=== PATIENT | female | born 1970 | race Caucasian/White ===

== ENCOUNTER 2020-12-13 15:26 | Inpatient (IN) | payer SELFPAY ==
[~2020-12-13] VITALS: Ht 157.5 cm; Wt 157.9 kg
[2020-12-13] MEDS ORDERED: VANCOMYCIN PER PHARMACY MC ONE (16:15)
[2020-12-13] MEDS ORDERED: fentaNYL PF VIAL 100 MCG/2 ML VIAL IVP ONE (16:15)
--- NOTE | 2020-12-13 16:22 | PHYS DOC ---
General Adult EDM: Chief Complaint: LOWER EXT PAIN HPI: HPI: Patient is a 50 year old female who presents with went to an urgent care where she was placed on doxycycline and cephalexin on December 08. She had a open wound on the back of the right lower leg that is draining to the back of her leg. Patient states that the pain is worsening and the redness has spread. Patient states that she has been taking aspirin or Advil for her pain at home. She states that she is having a fever that is intermittent. This morning it was 99.6 right before she took some Advil. Patient states that the only known health problems she has is asthma. She states that she does not have a primary care physician. She does have bilateral lymphedema. Her right lower leg is 4+ with redness and cellulitis with purulent drainage to the back of the leg with wound. The left leg in comparison is 3+. Rating her burning throbbing pain a 8 out of 10. Review of Systems: Review of Systems: Constitutional: + Intermittent fever or chills. [] Eyes: Denies change in visual acuity. [] HENT: Denies nasal congestion or sore throat. [] Respiratory: Denies cough or shortness of breath. [] Cardiovascular: Denies chest pain or edema. [] GI: Denies abdominal pain, nausea, vomiting, bloody stools or diarrhea. [] : Denies dysuria. [] Musculoskeletal: Denies back pain or joint pain.+ Right lower leg [] Integument: Denies rash. + Right lower leg wound with cellulitis [] Neurologic: Denies headache, focal weakness or sensory changes. [] Endocrine: Denies polyuria or polydipsia. [] Lymphatic: Denies swollen glands. [] Psychiatric: Denies depression or anxiety. [] Heart Score: C/O Chest Pain: No Risk Factors: Risk Factors: DM, Current or recent (<one month) smoker, HTN, HLP, family history of CAD, obesity. Risk Scores: Score 0 - 3: 2.5% MACE over next 6 weeks - Discharge Home Score 4 - 6: 20.3% MACE over next 6 weeks - Admit for Clinical Observation Score 7 - 10: 72.7% MACE over next 6 weeks - Early Invasive Strategies Current Medications: Current Medications Medications (Trade) Dose Ordered Sig/Chalo Start Time Stop Time Status Last Admin Dose Admin Fentanyl Citrate (Fentanyl 2ml Vial) 25 mcg 1X ONCE 12/13/20 16:15 12/13/20 16:16 UNV Vancomycin HCl (Vanco Per Pharmacy) 1 each 1X ONCE 12/13/20 16:15 12/13/20 16:16 UNV Allergies: Allergies: Allergies Coded Allergies Type Severity Reaction Last Updated Verified No Known Drug Allergies 12/13/20 No Physical Exam: PE: Constitutional: Well developed, well nourished, no acute distress, non-toxic appearance. [] HENT: Normocephalic, atraumatic, bilateral external ears normal, oropharynx moist, no oral exudates, nose normal. [] Eyes: PERRLA, EOMI, conjunctiva normal, no discharge. [] Neck: Normal range of motion, no tenderness, supple, no stridor. [] Cardiovascular:Heart rate regular rhythm, no murmur [] Lungs & Thorax: Bilateral breath sounds clear to auscultation [] Abdomen: Bowel sounds normal, soft, no tenderness, no masses, no pulsatile masses. [] Skin: Warm, dry, right lower leg erythema, no rash. Right lower leg excised open draining wound with cellulitis [] Back: No tenderness, no CVA tenderness. [] Extremities: No tenderness, no cyanosis, no clubbing, ROM intact, right leg 4+ edema. Left leg 3+ [] Neurologic: Alert and oriented X 3, normal motor function, normal sensory function, no focal deficits noted. [] Psychologic: Affect normal, judgement normal, mood normal. [] EKG: EK read by Dr. Griffith as sinus tach and no STEMI [] Radiology/Procedures: Radiology/Procedures: [] Impression: [facility] [address] [place], [place] [id number] IMAGING REPORT Signed PATIENT: FERNANDA MARRERO ACCOUNT: [id number] : 1970 LOCATION: ER AGE: 50 SEX: F EXAM STATUS: REG ER ORD. PHYSICIAN: CORNELIUS PAVON APRN REASON: tachycardia, edema PROCEDURE: PORTABLE CHEST 1V Exam: Chest one view INDICATION: Tachycardia TECHNIQUE: Frontal view of the chest Comparisons: None FINDINGS: The cardiomediastinal silhouette and pulmonary vessels are within normal limits. The lung and pleural spaces are clear. IMPRESSION: No acute cardiopulmonary process. Electronically signed by: Osmany Lopez MD (12/13/2020 5:17 PM) [facility] DICTATED and SIGNED BY: OSMANY LOPEZ MD DATE: 12/13/20 [id number] 0 Course & Med Decision Making: Course & Med Decision Making Pertinent Labs and Imaging studies reviewed. (See chart for details) See HPI. Alert and oriented x4. Ambulatory with steady gait. Speaks in full clear sentences. Afebrile. Pedal strong present. Otherwise skin pink warm and dry. Cap refill less than 2 seconds. Patient denies headache, dizziness, shortness of breath, chest pain, abdominal pain, nausea, vomiting, diarrhea, cough, vision change, focal weakness, numbness or tingling. Patient is a SIRS alert. Vancomycin and a liter of fluids is started. Patient is admitted to hospitalist. [] Dragon Disclaimer: Dragkathya Disclaimer: This electronic medical record was generated, in whole or in part, using a voice recognition dictation system. NIHSS Stroke Scale NIH Stroke Scale: NIH Stroke Scale Response (Comments) Value Level of Consciousness: 0 Alert/Responsive 0 LOC Questions: 0 Answers both correctly 0 LOC Commands: 0 Performs both tasks 0 Best Gaze: 0 Normal 0 Visual: 0 No visual loss 0 Facial Palsy: 0 Normal, symmetrical 0 Motor - Left Arm 0 No drift 0 Motor - Right Arm 0 No drift 0 Motor - Left Leg 0 No drift 0 Motor: Right Leg 0 No drift 0 Limb Ataxia: 0 Absent 0 Sensory: 0 No loss 0 Best Language: 0 Normal 0 Dysathria: 0 Normal 0 Extinction and Inattention: 0 Normal 0 Total 0 Date and Time of Reassessment Date: Dec 13, 2020 Time: 17:14 Fluid Challenge Is the fluid challenge complet: No IBW Target Volume Used: No BMI > 30: Yes Vital Signs Vital Signs: Vital Signs Date Time Temp Pulse Resp B/P (MAP) Pulse Ox O2 Delivery O2 Flow Rate FiO2 12/13/20 15:57 97.8 114 20 196/82 (120) 97 Room Air 97.8 Temperature Source: Oral Respirations Respiratory Effort: Normal Respiratory Pattern: Normal Cardiovascular Pulse Rhythm: Regular Heart: Nml S1, S2, no murmurs Lung Sounds Breath Sounds: Clear Capillary Refil Capillary Refill: Rt Hand < 3 seconds Peripheral Pulse Pulse Location: Radial Pulse Strength: Normal (2+) Pulse Assessment Method: Monitor Integumentary Skin: Warm Skin Moisture: Dry Skin Turgor: Normal Skin Color: warm Fingernail Color: WNL Departure Departure Impression: Primary Impression: Wound cellulitis Additional Impression: SIRS (systemic inflammatory response syndrome) Disposition: 09 ADMITTED INPATIENT Admitting Physician: HIMS Condition: STABLE Referrals: NO PCP (PCP) CORNELIUS PAVON [employer] Dec 13, 2020 16:22
[2020-12-13] MEDS ORDERED: ACETAMINOPHEN 325 MG TABLET. PO ONE (16:30)
[2020-12-13 16:51] LABS: BASO # 0.1 x10^3/uL (0.0-0.2); BASO % 1 % (0-3); EOS # 0.1 x10^3/uL (0.0-0.7); EOS % 1 % (0-3); HEMATOCRIT 28.9 % (36.0-47.0); HEMOGLOBIN 9.5 g/dL (12.0-15.5); LYMPH # 1.6 x10^3/uL (1.0-4.8); LYMPH % 14 % (24-48); MEAN CORPUSCULAR HEMOGLOBIN 30 pg (25-35); MEAN CORPUSCULAR HGB CONC 33 g/dL (31-37); MEAN CORPUSCULAR VOLUME 92 fL (79-100); MONO # 1.1 x10^3/uL (0.0-1.1); MONO % 9 % (0-9); NEUT # 8.6 x10^3/uL (1.8-7.7); NEUT % 75 % (31-73); PLATELET COUNT 547 x10^3/uL (140-400); RED BLOOD COUNT 3.14 x10^6/uL (3.50-5.40); RED CELL DISTRIBUTION WIDTH 13.9 % (11.5-14.5); WHITE BLOOD COUNT 11.4 x10^3/uL (4.0-11.0)
[2020-12-13 16:59] LABS: CALCIUM 8.9 mg/dL (8.5-10.1); CREATININE 0.8 mg/dL (0.6-1.0); GFR 75.3; POTASSIUM 4.4 mmol/L (3.5-5.1)
[2020-12-13] MEDS ORDERED: VANCOMYCIN 2 GM in IV NORMAL SALINE 500ML BAG 500 ML IV ONE (17:00)
[2020-12-13 17:05] LABS: ALBUMIN 2.9 g/dL (3.4-5.0); ALBUMIN/GLOBULIN RATIO 0.6 (1.0-1.7); TOTAL BILIRUBIN 0.3 mg/dL (0.2-1.0); TOTAL PROTEIN 7.7 g/dL (6.4-8.2)
[2020-12-13] MEDS ORDERED: IV NORMAL SALINE 1000ML BAG 1,000 ML IV ONE (17:15)
--- NOTE | 2020-12-13 17:19 | RAD ---
Exam: Chest one view INDICATION: Tachycardia TECHNIQUE: Frontal view of the chest Comparisons: None FINDINGS: The cardiomediastinal silhouette and pulmonary vessels are within normal limits. The lung and pleural spaces are clear. IMPRESSION: No acute cardiopulmonary process. Electronically signed by: Osmany Garcia MD (12/13/2020 5:17 PM) JOSEF
[2020-12-13] MEDS ORDERED: ZOLPIDEM 5 MG TABLET. PO PRN (17:30)
[2020-12-13] MEDS ORDERED: ONDANSETRON PF 4 MG/2 ML VIAL. IV PRN (17:30)
--- NOTE | 2020-12-13 17:33 | PDOC1 ---
History and Physical Date of Admission Date of Admission DATE: 12/13/20 TIME: 17:29 Identification/Chief Complaint Chief Complaint Right leg pain Source Source: Patient History of Present Illness History of Present Illness Ms Jacobs is a 50 year old female with PMHx childhood asthma, morbid obesity who presents via private vehicle to ED c/o RLE swelling, pain, and redness. On 12/08/2020 she was evaluated for pain and redness, swelling of RLE and treated at 2 different urgent cares, started on doxycycline and cephalexin. Since then she has noted that some serous drainage has been saturating her clothing and bedsheets and the pain is progressively worse and the swelling is worse. She thinks the redness may have initially improved, but now includes the circumference of her leg. Pain is 7-8/10 and is burning in nature, radiates to her right groin. She has had subjective fevers and chills at home and has been taking NSAIDs with little relief (Ibuprofen and ASA). No recent sick contacts or travel. No other medical problems Since her 30s she has had progressively worse bilateral LE lymphedema since massive weight gain. She notes this is mainly due to her sedentary lifestyle. She does not follow with a primary care physician. EKG appears sinus tachycardia with left axis rate of [address] segment abnormalities or T wave inversions. Chest radiograph with no acute abnorm alities Labs with WBC 11.4 with shift, Hb 9.5, platelets 547, NA 140, K4.4, BUN 11, CR 0.8, glucose 108, lactic acid 1.4, troponin 0. Admitted for further treatment after failing outpatient cellulitis treatment. Past Medical History Cardiovascular: No pertinent hx Pulmonary: Asthma (Childhood) Past Surgical History Past Surgical History: No pertinent history Family History Family History: Hypertension, Obesity Social History Smoke: No ALCOHOL: none Drugs: None Current Problem List Problem List Problems Medical Problems: (1) SIRS (systemic inflammatory response syndrome) Status: Acute (2) Wound cellulitis Status: Acute Current Medications Current Medications Current Medications Vancomycin HCl (Vanco Per Pharmacy) 1 each 1X ONCE MC ; Start 12/13/20 at 16:15; Stop 12/13/20 at 16:16; Status UNV Fentanyl Citrate (Fentanyl 2ml Vial) 25 mcg 1X ONCE IVP Last administered on 12/13/20at 17:18; Start 12/13/20 at 16:15; Stop 12/13/20 at 16:16; Status DC Acetaminophen (Tylenol) 650 mg 1X ONCE PO Last administered on 12/13/20at 17:17; Start 12/13/20 at 16:30; Stop 12/13/20 at 16:31; Status DC Vancomycin HCl 2 gm/Sodium Chloride 500 ml @ 250 mls/hr 1X ONCE IV ; Start 12/13/20 at 17:00; Stop 12/13/20 at 18:59 Sodium Chloride 1,000 ml @ 1,000 mls/hr 1X ONCE IV Last administered on 12/13/20at 17:17; Start 12/13/20 at 17:15; Stop 12/13/20 at 18:14 Allergies Allergies: Coded Allergies: No Known Drug Allergies (Unverified , 12/13/20) ROS General: YES: Fatigue, Malaise; No: Chills, Night Sweats, Appetite, Other PSYCHOLOGICAL ROS: No: Anxiety, Behavioral Disorder, Concentration difficultie, Decreased libido, Depression, Disorientation, Hallucinations, Hostility, Irritablity, Memory difficulties, Mood Swings, Obsessive thoughts, Physical abuse, Sexual abuse, Sleep disturbances, Suicidal ideation, Other Eyes: No Blurry vision, No Decreased vision, No Double vision, No Dry eyes, No Excessive tearing, No Eye Pain, No Itchy Eyes, No Loss of vision, No Photophobia, No Scotomata, No Uses contacts, No Uses glasses, No Other HEENT: No: Heacaches, Visual Changes, Hearing change, Nasal congestion, Nasal discharge, Oral lesions, Sinus pain, Sore Throat, Epistaxis, Sneezing, Snoring, Tinnitus, Vertigo, Vocal changes, Other ALLERGY AND IMMUNOLOGY: No: Hives, Insect Bite Sensitivity, Itchy/Watery Eyes, Nasal Congestion, Post Nasal Drip, Seasonal Allergies, Other Hematological and Lymphatic: No: Bleeding Problems, Blood Clots, Blood Trans fusions, Brusing, Night Sweats, Pallor, Swollen Lymph Nodes, Other ENDOCRINE: No: Breast Changes, Galactorrhea, Hair Pattern Changes, Hot Flashes, Malaise/lethargy, Mood Swings, Palpitations, Polydipsia/polyuria, Skin Changes, Temperature Intolerance, Unexpected Weight Changes, Other Breast: No New/Changing Breast Lumps, No Nipple changes, No Nipple discharge, No Other Respiratory: No: Cough, Hemoptysis, Orthopnea, Pleuritic Pain, Shortness of breath, SOB with excertion, Sputum Changes, Stridor, Tachypnea, Wheezing, Other Cardiovascular: No Chest Pain, No Palpitations, No Orthopnea, No Paroxysmal Noc. Dyspnea, No Edema, No Lt Headedness, No Other Gastrointestinal: No Nausea, No Vomiting, No Abdominal Pain, No Diarrhea, No Constipation, No Melena, No Hematochezia, No Other Genitourinary: No Dysuria, No Frequency, No Incontinence, No Hematuria, No Retention, No Discharge, No Urgency, No Pain, No Flank Pain, No Other, No , No , No , No , No , No , No Musculoskeletal: Yes Gait Disturbance, Yes Muscle Pain; No Joint Pain, No Joint Stiffness, No Joint Swelling, No Muscular Weakness, No Pain In:, No Swelling In:, No Other Neurological: No Behavorial Changes, No Bowel/Bladder ControlChng, No Confusion, No Dizziness, No Gait Disturbance, No Headaches, No Impaired Coord/balance, No Memory Loss, No Numbness/Tingling, No Seizures, No Speech Problems, No Tremors, No Visual Changes, No Weakness, No Other Skin: Yes Rash, Yes Skin Lesion Changes; No Dry Skin, No Eczema, No Hair Changes, No Lumps, No Mole Changes, No Mottling, No Nail Changes, No Pruritus, No Other, No Acne Physical Exam General: Alert, Oriented X3, Cooperative, mild distress HEENT: Atraumatic, PERRLA, EOMI, Mucous membr. moist/pink, Other (Glasses in place) Lungs: Clear to auscultation, Normal air movement Heart: S1S2, RRR, no thrills, no rubs, no gallops, no murmurs Abdomen: Normal bowel sounds, Soft, No tenderness, No hepatosplenomegaly, No masses Rectal Exam: not examined Extremities: No clubbing, No cyanosis, Normal pulses, Other (RLE red, hot, swollen x2 LLE size, tender, red 3/4 up leg, circumferentially. LLE swollen as well) Skin: Other (RLE erythema with some bullae) Neuro: Normal gait, Normal speech, Strength at 5/5 X4 ext, Normal tone, Sensation intact, Cranial nerves 3-12 NL, Reflexes 2+ Psych/Mental Status: Mental status NL, Mood NL Vitals Vitals Vital Signs Date Time Temp Pulse Resp B/P (MAP) Pulse Ox O2 Delivery O2 Flow Rate FiO2 12/13/20 17:18 Room Air 12/13/20 15:57 97.8 114 20 196/82 (120) 97 97.8 Labs Labs Laboratory Tests Test 12/13/20 16:30 White Blood Count 11.4 x10^3/uL (4.0-11.0) Red Blood Count 3.14 x10^6/uL (3.50-5.40) Hemoglobin 9.5 g/dL (12.0-15.5) Hematocrit 28.9 % (36.0-47.0) Mean Corpuscular Volume 92 fL (79-100) Mean Corpuscular Hemoglobin 30 pg (25-35) Mean Corpuscular Hemoglobin Concent 33 g/dL (31-37) Red Cell Distribution Width 13.9 % (11.5-14.5) Platelet Count 547 x10^3/uL (140-400) Neutrophils (%) (Auto) 75 % (31-73) Lymphocytes (%) (Auto) 14 % (24-48) Monocytes (%) (Auto) 9 % (0-9) Eosinophils (%) (Auto) 1 % (0-3) Basophils (%) (Auto) 1 % (0-3) Neutrophils # (Auto) 8.6 x10^3/uL (1.8-7.7) Lymphocytes # (Auto) 1.6 x10^3/uL (1.0-4.8) Monocytes # (Auto) 1.1 x10^3/uL (0.0-1.1) Eosinophils # (Auto) 0.1 x10^3/uL (0.0-0.7) Basophils # (Auto) 0.1 x10^3/uL (0.0-0.2) Sodium Level 140 mmol/L (136-145) Potassium Level 4.4 mmol/L (3.5-5.1) Chloride Level 101 mmol/L (98-107) Carbon Dioxide Level 27 mmol/L (21-32) Anion Gap 12 (6-14) Blood Urea Nitrogen 11 mg/dL (7-20) Creatinine 0.8 mg/dL (0.6-1.0) Estimated GFR (Cockcroft-Gault) 75.3 BUN/Creatinine Ratio 14 (6-20) Glucose Level 108 mg/dL (70-99) Lactic Acid Level 1.4 mmol/L (0.4-2.0) Calcium Level 8.9 mg/dL (8.5-10.1) Troponin I Quantitative < 0.017 ng/mL (0.000-0.055) Laboratory Tests Test 12/13/20 16:30 White Blood Count 11.4 x10^3/uL (4.0-11.0) Red Blood Count 3.14 x10^6/uL (3.50-5.40) Hemoglobin 9.5 g/dL (12.0-15.5) Hematocrit 28.9 % (36.0-47.0) Mean Corpuscular Volume 92 fL (79-100) Mean Corpuscular Hemoglobin 30 pg (25-35) Mean Corpuscular Hemoglobin Concent 33 g/dL (31-37) Red Cell Distribution Width 13.9 % (11.5-14.5) Platelet Count 547 x10^3/uL (140-400) Neutrophils (%) (Auto) 75 % (31-73) Lymphocytes (%) (Auto) 14 % (24-48) Monocytes (%) (Auto) 9 % (0-9) Eosinophils (%) (Auto) 1 % (0-3) Basophils (%) (Auto) 1 % (0-3) Neutrophils # (Auto) 8.6 x10^3/uL (1.8-7.7) Lymphocytes # (Auto) 1.6 x10^3/uL (1.0-4.8) Monocytes # (Auto) 1.1 x10^3/uL (0.0-1.1) Eosinophils # (Auto) 0.1 x10^3/uL (0.0-0.7) Basophils # (Auto) 0.1 x10^3/uL (0.0-0.2) Sodium Level 140 mmol/L (136-145) Potassium Level 4.4 mmol/L (3.5-5.1) Chloride Level 101 mmol/L (98-107) Carbon Dioxide Level 27 mmol/L (21-32) Anion Gap 12 (6-14) Blood Urea Nitrogen 11 mg/dL (7-20) Creatinine 0.8 mg/dL (0.6-1.0) Estimated GFR (Cockcroft-Gault) 75.3 BUN/Creatinine Ratio 14 (6-20) Glucose Level 108 mg/dL (70-99) Lactic Acid Level 1.4 mmol/L (0.4-2.0) Calcium Level 8.9 mg/dL (8.5-10.1) Troponin I Quantitative < 0.017 ng/mL (0.000-0.055) Images Images Chest radiograph: The cardiomediastinal silhouette and pulmonary vessels are within normal limits. The lung and pleural spaces are clear. IMPRESSION: No acute cardiopulmonary process. VTE Prophylaxis Ordered VTE Prophylaxis Devices: No VTE Pharmacological Prophylaxi: Yes Assessment/Plan Assessment/Plan A/P: RLE cellulitis - with failure of outpatient antibiotics, admitted for further treatment. Elevate leg, compressive wrap, empiric vancomycin for staph coverage and rocephin for strep coverage, hopefully can transition back to PO in the next 48 hours. Needs lymphedema and weight loss outpatient. Sepsis - with tachycardia, leukocytosis and clearly with cellulitis treating with IV antibiotics. ED had consulted ID prior to call for admission. RLE swelling - will obtain venous doppler to r/o concomitant DVT. likely cellulitis and lymphedema related, both likely related to weight Morbid obesity - patient working on weight loss. Previously notes in her teens and 20s was at her goal BMI, but since her late 30s has gained significant weight and has started a graded exercise program and is trying to work with a supervisor force adjustment. Counseled on lifestyle modification Hyperglycemia - will check a1c, TSH Elevated blood pressure without a diagnosis of hypertension - will need 2 weeks of ambulatory monitoring of BP prior to having good recommendations for BP meds outpatient, though a combination JESIKA/ARB + HCTZ would likely be indicated in the near future Anemia - no clear blood loss. Likely of chronic disease. Will check iron studies. She does need screening colonoscopy given age > 45 H/o asthma - no shortness of breath. FEN - General diet PPX - lovenox FULL CODE Dispo - inpatient for outpatient cellulitis treatment failure. Justifications for Admission Other Justification JOSE JUAN WEIR MD Dec 13, 2020 17:33
[2020-12-13] MEDS ORDERED: fentaNYL PF VIAL 100 MCG/2 ML VIAL IV PRN (17:45)
[2020-12-13] MEDS ORDERED: ACETAMINOPHEN 325 MG TABLET. PO PRN (17:45)
[2020-12-13] MEDS ORDERED: cefTRIAXone IV Push 1 GM VIAL. IVP ONE (18:00)
--- NOTE | 2020-12-13 18:11 | EKG ---
[facility] [address] [place] [address] Test Date: 2020-12-13 Test Time: 16:30:54 Pat Name: FERNANDA MARRERO Department: Room: Gender: F Travel Rn Or: : 1970 Requested By: CORNELIUS PAVON Order Number: [id number] Reading MD: Measurements Intervals [place] Rate: 105 P: 54 [place]: 148 QRS: -24 QRSD: 92 T: 55 QT: 322 QTc: 429 Interpretive Statements SINUS TACHYCARDIA LEFTWARD AXIS OTHERWISE NORMAL ECG RI6.02 No previous ECG available for comparison
[2020-12-13] MEDS: VANCOMYCIN PER PHARMACY MC PRN (19:50)
[2020-12-13 19:51] LABS: BILIRUBIN,URINE NEGATIVE (NEG); CLARITY,URINE CLEAR; COLOR,URINE YELLOW; NITRITE,URINE NEGATIVE (NEG); PH,URINE 7.5 (<5.0-8.0); PROTEIN,URINE NEGATIVE (NEG-TRACE); UROBILINOGEN,URINE 0.2 mg/dL (0.2 mg/dL)
--- NOTE | 2020-12-13 19:53 | NUR ---
Pharmacy Vancomycin Dosing Note S:Consulted to monitor and dose vancomycin started 12/13/20. O:FERNANDA MARRERO is a 50 year old F with Cellulitis . Height: 5 feet, 2 inches Weight: 156.2 kg [place] Body Weight: 50.10 Adjusted Body Weight: 92.54 Dosing Weight: Actual Other Antibiotics: LABS: Last BUN: Last Creatinine: 0.8 Creatinine Clearance: 125 mL/min Last WBC: 11.4 Last Procalcitonin: Tmax (past 24 hours): 97.8 Microbiology: I/O: Drug Levels: Last level: on at Last dose given 12/13/20 at 1947 Vancomycin Dosing: Loading Dose: 2000 mg x1 Dosing Weight: Actual Target Trough: 10-20 A: Based on: WEIGHT AND RENAL FUNCTION, VANCOMYCIN 2GM IV BOLUS GIVEN, P: 1. Begin Vancomycin 1500 mg IV q8h 2. Follow up Trough level on 12/14/20 at 1930 3. Pharmacy will continue to monitor, follow and adjust therapy as needed. TIM FARR RPH, 12/13/201952
[2020-12-13 20:00] VITALS: BP 194/78
[2020-12-13] MEDS ORDERED: ENOXAPARIN 40 MG/0.4 ML SYRINGE. SQ SCH (20:00)
[2020-12-13 20:02] LABS: BACTERIA,URINE 0 /HPF (0-FEW)
[2020-12-13] MEDS ORDERED: MULT-650 PO (22:38)
[2020-12-13] MEDS ORDERED: MV,C400T PO (22:38)
[2020-12-13] MEDS ORDERED: ACET325T9 PO (22:38)
[2020-12-13 23:59] VITALS: BP 142/70
[2020-12-14] VITALS (7 sets, daily range): BP systolic 140–188; BP diastolic 59–81
--- NOTE | 2020-12-14 02:49 | RAD ---
US DPLX VENOUS EXTREMITY LOWER RT History: Reason: Cellulitis, concern for DVT with significant swelling and pain / Spl. Instructions: / History: Comparison: None. Discussion: Multiple longitudinal and transverse high resolution real-time images of the venous system of right l ower extremity were obtained with color and Doppler sampling. Patent right common femoral, deep femor al, superficial femoral, and popliteal veins. Calf veins not well seen due to patient body habitus an d edema. No definite thrombosis. Right lower extremity subcutaneous edema. Impression: 1. No evidence of deep vein thrombosis. 2. Right lower extremity subcutaneous edema. Electronically signed by: Demetrius Dixon DO (12/14/2020 2:47 AM) [facility]
[2020-12-14] MEDS: VANCOMYCIN 1.5 GM in IV NORMAL SALINE 500ML BAG 500 ML IV SCH ×3 (04:04→21:03)
[2020-12-14] MEDS: ACETAMINOPHEN 325 MG TABLET. PO PRN ×3 (04:07→23:51)
[2020-12-14 07:57] LABS: BASO % 1 % (0-3); EOS % 1 % (0-3); HEMOGLOBIN 8.4 g/dL (12.0-15.5); LYMPH # 1.2 x10^3/uL (1.0-4.8); LYMPH % 13 % (24-48); MEAN CORPUSCULAR HEMOGLOBIN 31 pg (25-35); MEAN CORPUSCULAR HGB CONC 33 g/dL (31-37); MEAN CORPUSCULAR VOLUME 92 fL (79-100); MONO # 0.9 x10^3/uL (0.0-1.1); MONO % 10 % (0-9); NEUT # 6.8 x10^3/uL (1.8-7.7); NEUT % 76 % (31-73); PLATELET COUNT 465 x10^3/uL (140-400); RED BLOOD COUNT 2.71 x10^6/uL (3.50-5.40); RED CELL DISTRIBUTION WIDTH 14.1 % (11.5-14.5)
[2020-12-14 08:22] LABS: CALCIUM 8.7 mg/dL (8.5-10.1); CREATININE 0.8 mg/dL (0.6-1.0); GFR 75.3; POTASSIUM 4.3 mmol/L (3.5-5.1)
[2020-12-14] MEDS: LABETALOL 20 MG/4 ML DISP.SYRIN. IVP PRN ×2 (09:27→15:34)
--- NOTE | 2020-12-14 11:47 | NUR ---
SW following. Discussed with RN, pt from home with mother, room air, cardiac diet. Lymphedema OT ordered. Wound care and ID consulted. Med Assist following for self pay status. SW will continue to follow.
--- NOTE | 2020-12-14 13:28 | PDOC ---
[employer] PROGRESS NOTE Date of Service DOS: DATE: 12/14/20 TIME: 13:27 Chief Complaint Chief Complaint RLE cellulitis - with failure of outpatient antibiotics, admitted for further treatment. Elevate leg, compressive wrap, empiric vancomycin for staph coverage and rocephin for strep coverage, hopefully can transition back to PO in the next 48 hours. Needs lymphedema and weight loss outpatient. Sepsis - with tachycardia, leukocytosis and clearly with cellulitis treating with IV antibiotics. ED had consulted ID prior to call for admission. RLE swelling - will obtain venous doppler to r/o concomitant DVT. likely cellulitis and lymphedema related, both likely related to weight Morbid obesity - patient working on weight loss. 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 Counseled on lifestyle modification Hyperglycemia - will check a1c, TSH Elevated blood pressure without a diagnosis of hypertension - will need 2 weeks of ambulatory monitoring of BP prior to having good recommendations for BP meds outpatient, though a combination JESIKA/ARB + HCTZ would likely be indicated in the near future Anemia - no clear blood loss. Likely of chronic disease. Will check iron stud ies. She does need screening colonoscopy given age > 45 H/o asthma - no shortness of breath. Vitals/I&O Vitals/I&O: Vital Signs Date Time Temp Pulse Resp B/P (MAP) Pulse Ox O2 Delivery O2 Flow Rate FiO2 12/14/20 10:17 140/73 (95) 12/14/20 09:27 93 12/14/20 07:48 99.0 18 97 Room Air 99.0 I & O 12/13/20 12/13/20 12/14/20 15:00 23:00 07:00 Intake Total 500 ml Balance 500 ml Physical Exam General: Alert, Oriented X3, Cooperative, mild distress Heart: Regular rate Lungs: Clear Abdomen: Normal bowel sounds, Soft, No tenderness, No hepatosplenomegaly, No m asses Extremities: No clubbing, No cyanosis, Normal pulses, Other (RLE red, hot, swollen x2 LLE size, tender, red 3/4 up leg, circumferentially. LLE swollen as well) Skin: Other (RLE erythema with some bullae) Labs Labs: Laboratory Tests Test 12/13/20 16:30 6/7/21 19:43 12/14/20 07:20 White Blood Count 11.4 x10^3/uL (4.0-11.0) 9.0 x10^3/uL (4.0-11.0) Red Blood Count 3.14 x10^6/uL (3.50-5.40) 2.71 x10^6/uL (3.50-5.40) Hemoglobin 9.5 g/dL (12.0-15.5) 8.4 g/dL (12.0-15.5) Hematocrit 28.9 % (36.0-47.0) 25.0 % (36.0-47.0) Mean Corpuscular Volume 92 fL (79-100) 92 fL (79-100) Mean Corpuscular Hemoglobin 30 pg (25-35) 31 pg (25-35) Mean Corpuscular Hemoglobin Concent 33 g/dL (31-37) 33 g/dL (31-37) Red Cell Distribution Width 13.9 % (11.5-14.5) 14.1 % (11.5-14.5) Platelet Count 547 x10^3/uL (140-400) 465 x10^3/uL (140-400) Neutrophils (%) (Auto) 75 % (31-73) 76 % (31-73) Lymphocytes (%) (Auto) 14 % (24-48) 13 % (24-48) Monocytes (%) (Auto) 9 % (0-9) 10 % (0-9) Eosinophils (%) (Auto) 1 % (0-3) 1 % (0-3) Basophils (%) (Auto) 1 % (0-3) 1 % (0-3) Neutrophils # (Auto) 8.6 x10^3/uL (1.8-7.7) 6.8 x10^3/uL (1.8-7.7) Lymphocytes # (Auto) 1.6 x10^3/uL (1.0-4.8) 1.2 x10^3/uL (1.0-4.8) Monocytes # (Auto) 1.1 x10^3/uL (0.0-1.1) 0.9 x10^3/uL (0.0-1.1) Eosinophils # (Auto) 0.1 x10^3/uL (0.0-0.7) 0.0 x10^3/uL (0.0-0.7) Basophils # (Auto) 0.1 x10^3/uL (0.0-0.2) 0.0 x10^3/uL (0.0-0.2) Erythrocyte Sedimentation Rate 130 (0-25) Sodium Level 140 mmol/L (136-145) 143 mmol/L (136-145) Potassium Level 4.4 mmol/L (3.5-5.1) 4.3 mmol/L (3.5-5.1) Chloride Level 101 mmol/L (98-107) 106 mmol/L (98-107) Carbon Dioxide Level 27 mmol/L (21-32) 28 mmol/L (21-32) Anion Gap 12 (6-14) 9 (6-14) Blood Urea Nitrogen 11 mg/dL (7-20) 7 mg/dL (7-20) Creatinine 0.8 mg/dL (0.6-1.0) 0.8 mg/dL (0.6-1.0) Estimated GFR (Cockcroft-Gault) 75.3 75.3 BUN/Creatinine Ratio 14 (6-20) Glucose Level 108 mg/dL (70-99) 98 mg/dL (70-99) Lactic Acid Level 1.4 mmol/L (0.4-2.0) Calcium Level 8.9 mg/dL (8.5-10.1) 8.7 mg/dL (8.5-10.1) Total Bilirubin 0.3 mg/dL (0.2-1.0) Aspartate Amino Transf (AST/SGOT) 22 U/L (15-37) Alanine Aminotransferase (ALT/SGPT) 24 U/L (14-59) Alkaline Phosphatase 132 U/L (46-116) Troponin I Quantitative < 0.017 ng/mL (0.000-0.055) C-Reactive Protein, Quantitative 301.0 mg/L (0-3.3) CP-Cst-D-Type Natriuretic Peptide 344 pg/mL (0-124) Total Protein 7.7 g/dL (6.4-8.2) Albumin 2.9 g/dL (3.4-5.0) Albumin/Globulin Ratio 0.6 (1.0-1.7) Thyroid Stimulating Hormone (TSH) 3.064 uIU/mL (0.358-3.74) Urine Collection Type Unknown Urine Color Yellow Urine Clarity Clear Urine pH 7.5 (<5.0-8.0) Urine Specific [place] 1.010 (1.000-1.030) Urine Protein Negative mg/dL (NEG-TRACE) Urine Glucose (UA) Negative mg/dL (NEG) Urine Ketones (Stick) Negative mg/dL (NEG) Urine Blood Trace (NEG) Urine Nitrite Negative (NEG) Urine Bilirubin Negative (NEG) Urine Urobilinogen Dipstick 0.2 mg/dL (0.2 mg/dL) Urine Leukocyte Esterase Negative (NEG) Urine RBC 11-20 /HPF (0-2) Urine WBC 1-4 /HPF (0-4) Urine Squamous Epithelial Cells Many /LPF Urine Bacteria 0 /HPF (0-FEW) Review of Systems Review of Systems: right leg swelling and pain Assessment and Plan Assessmemt and Plan Problems Medical Problems: (1) SIRS (systemic inflammatory response syndrome) Status: Acute (2) Wound cellulitis Status: Acute Comment Review of Relevant I have reviewed the following items riya (where applicable) has been applied. Medications: Current Medications Medications (Trade) Dose Ordered Sig/Chalo Route PRN Reason Start Time Stop Time Status Last Admin Dose Admin Fentanyl Citrate (Fentanyl 2ml Vial) 25 mcg 1X ONCE IVP 12/13/20 16:15 12/13/20 16:16 DC 12/13/20 17:18 Acetaminophen (Tylenol) 650 mg 1X ONCE PO 12/13/20 16:30 12/13/20 16:31 DC 12/13/20 17:17 Vancomycin HCl 2 gm/Sodium Chloride 500 ml @ 250 mls/hr 1X ONCE IV 12/13/20 17:00 12/13/20 18:59 DC 12/13/20 19:36 Sodium Chloride 1,000 ml @ 1,000 mls/hr 1X ONCE IV 12/13/20 17:15 12/13/20 18:14 DC 12/13/20 17:17 Ceftriaxone Sodium (Rocephin) 1 gm 1X ONCE IVP 12/13/20 18:00 12/13/20 18:01 DC 12/13/20 19:36 Acetaminophen (Tylenol) 650 mg PRN Q6HRS PRN PO TEMP OVER 100.4F OR MILD PAIN 12/13/20 17:30 12/14/20 04:07 Enoxaparin Sodium (Lovenox 40mg Syringe) 40 mg Q24H SQ 12/13/20 20:00 12/14/20 12:29 DC 12/13/20 22:26 Vancomycin HCl (Vanco Per Pharmacy) 1 each PRN DAILY PRN MC SEE COMMENTS 12/13/20 20:00 12/13/20 19:50 Vancomycin HCl 1.5 gm/Sodium Chloride 500 ml @ 250 mls/hr Q8H IV 12/14/20 04:00 12/14/20 11:49 Labetalol HCl (Normodyne Iv Push) 20 mg PRN Q2HR PRN IVP HYPERTENSION 12/13/20 22:00 12/14/20 09:27 Justifications for Admission Other Justification FIDEL THOMAS MD Dec 14, 2020 13:27
--- NOTE | 2020-12-14 17:36 | NUR ---
Wound Care Wound Type/Assessment: Consult to eval and treat closed blister to R posterior calf, picture and measurements from admission present. Upon assessment, blister noted to have ruptured and moderate amount of creamy serosanguinous observed. Wound base red, non-granular, with slough. Margins are bright red and entire lower leg is red, lymphatic edema. No other open wounds noted on head to toe assessment. Treatment Recommendations/Plan: R posterior leg: Cleanse and cover with aquacel AG and foam dressing. Change every other day and as needed to manage drainage. OT consult to treat lymphedema Education provided: Turn every 2 hours to prevent pressure related skin damage. Offloading surface/device: Pt is able to make small adjustments to position independently. Recommended Referrals/Tests: OT-lymphedema Discharge Recommendations for dressings: As above
[2020-12-14 20:41] LABS: VANC TR 18.8 mcg/mL (10.0-20.0)
[2020-12-14] MEDS: VANCOMYCIN PER PHARMACY MC PRN (20:44)
--- NOTE | 2020-12-14 20:47 | NUR ---
Pharmacy Vancomycin Dosing Note S:Consulted to monitor and dose vancomycin started 12/13/20. O:FERNANDA MARRERO is a 50 year old F with Cellulitis . Height: 5 feet, 2 inches Weight: 157.3 kg [place] Body Weight: 50.10 Adjusted Body Weight: 92.98 Dosing Weight: Actual Other Antibiotics: LABS: Last BUN: Last Creatinine: 0.8 Creatinine Clearance: 125 mL/min Last WBC: 11.4 Last Procalcitonin: Tmax (past 24 hours): 97.8 Microbiology: I/O: Drug Levels: Last Trough level: 18.8 on 12/14/20 at 1930 Last dose given 12/13/20 at 1947 Vancomycin Dosing: Loading Dose: 2000 mg x1 Dosing Weight: Actual Target Trough: 10-20 A: Based on: LEVEL P: 1. Continue Vancomycin 1500 mg IV q8h 2. Follow up Trough level on 12/15/20 at 1930 3. Pharmacy will continue to monitor, follow and adjust therapy as needed. TIM FARR RPH, 12/14/206
[2020-12-14 23:08] LABS: HEMOGLOBIN A1C 5.6 % (4.8-5.6)
[2020-12-15 03:00] VITALS: BP 156/64
[2020-12-15] MEDS: VANCOMYCIN 1.5 GM in IV NORMAL SALINE 500ML BAG 500 ML IV SCH ×2 (04:00→11:54)
--- NOTE | 2020-12-15 05:30 | NUR ---
Patient's vancomycin started at this time, as meditech down, and schedule was off.
[2020-12-15 07:00] VITALS: BP 138/94
--- NOTE | 2020-12-15 10:02 | NUR ---
SW following. Discussed with RN, pt from home with mother, room air, cardiac diet. Pt wanting to discharge home today. Med Assist following for self pay status. SW will continue to follow.
[2020-12-15 11:00] VITALS: BP 163/73
[2020-12-15] MEDS: ACETAMINOPHEN 325 MG TABLET. PO PRN (11:55)
[2020-12-15] MEDS ORDERED: CLIN300C9 PO (12:26)
[2020-12-15] MEDS: VANCOMYCIN PER PHARMACY MC PRN (14:00)
[2020-12-15 15:00] VITALS: BP 180/83
[2020-12-15] MEDS: LABETALOL 20 MG/4 ML DISP.SYRIN. IVP PRN (15:43)
[2020-12-15 16:15] VITALS: BP 163/75
--- NOTE | 2020-12-15 16:21 | NUR ---
This RN notified Dr. Montes of pt's current BP-163/75, after labetolol administration. Refer to EMAR for details. Per Dr. Montes, pt okay to discharge with current BP reading.
--- NOTE | 2020-12-15 16:45 | NUR ---
Pt left unit at approx 1645 by wheelchair via private vehicle, accompanied by mother. Pt's IV removed without complication, VSS. Discharge paperwork discussed with pt and mother, including medications, follow-up, and wound care. Additional questions addressed.
--- NOTE | 2020-12-15 16:55 | PDOC3 ---
Discharge Summary Visit Information Date of Admission: Dec 13, 2020 Date of Discharge: Dec 15, 2020 Final Diagnosis RLE cellulitis - failure of outpatient antibiotics, doxy admitted for further treatment. marked LE lymphedema Sepsis - with tachycardia, leukocytosis and clearly with cellulitis treating with IV antibiotics. ED had consulted ID prior to call for admission. RLE swelling - will obtain venous doppler to r/o concomitant DVT. likely cellulitis and lymphedema related, both likely related to weight Morbid obesity - BMI 64, patient working on weight loss. Pr Hyperglycemia - will check a1c, TSH hypertension Anemia - of chronic disease. H/o asthma - no shortness of breath. Problems Medical Problems: (1) SIRS (systemic inflammatory response syndrome) Status: Acute (2) Wound cellulitis Status: Acute Brief Hospital Course Allergies Allergies Coded Allergies Type Severity Reaction Last Updated Verified No Known Drug Allergies 12/13/20 No Vital Signs Vital Signs Date Time Temp Pulse Resp B/P (MAP) Pulse Ox O2 Delivery O2 Flow Rate FiO2 12/15/20 16:15 163/75 (104) 12/15/20 15:43 91 12/15/20 15:00 98.6 18 96 Room Air 98.6 Lab Results Laboratory Tests Test 12/13/20 19:43 12/14/20 07:20 12/14/20 19:42 Urine Collection Type Unknown Urine Color Yellow Urine Clarity Clear Urine pH 7.5 (<5.0-8.0) Urine Specific [place] 1.010 (1.000-1.030) Urine Protein Negative mg/dL (NEG-TRACE) Urine Glucose (UA) Negative mg/dL (NEG) Urine Ketones (Stick) Negative mg/dL (NEG) Urine Blood Trace (NEG) Urine Nitrite Negative (NEG) Urine Bilirubin Negative (NEG) Urine Urobilinogen Dipstick 0.2 mg/dL (0.2 mg/dL) Urine Leukocyte Esterase Negative (NEG) Urine RBC 11-20 /HPF (0-2) Urine WBC 1-4 /HPF (0-4) Urine Squamous Epithelial Cells Many /LPF Urine Bacteria 0 /HPF (0-FEW) White Blood Count 9.0 x10^3/uL (4.0-11.0) Red Blood Count 2.71 x10^6/uL (3.50-5.40) Hemoglobin 8.4 g/dL (12.0-15.5) Hematocrit 25.0 % (36.0-47.0) Mean Corpuscular Volume 92 fL (79-100) Mean Corpuscular Hemoglobin 31 pg (25-35) Mean Corpuscular Hemoglobin Concent 33 g/dL (31-37) Red Cell Distribution Width 14.1 % (11.5-14.5) Platelet Count 465 x10^3/uL (140-400) Neutrophils (%) (Auto) 76 % (31-73) Lymphocytes (%) (Auto) 13 % (24-48) Monocytes (%) (Auto) 10 % (0-9) Eosinophils (%) (Auto) 1 % (0-3) Basophils (%) (Auto) 1 % (0-3) Neutrophils # (Auto) 6.8 x10^3/uL (1.8-7.7) Lymphocytes # (Auto) 1.2 x10^3/uL (1.0-4.8) Monocytes # (Auto) 0.9 x10^3/uL (0.0-1.1) Eosinophils # (Auto) 0.0 x10^3/uL (0.0-0.7) Basophils # (Auto) 0.0 x10^3/uL (0.0-0.2) Sodium Level 143 mmol/L (136-145) Potassium Level 4.3 mmol/L (3.5-5.1) Chloride Level 106 mmol/L (98-107) Carbon Dioxide Level 28 mmol/L (21-32) Anion Gap 9 (6-14) Blood Urea Nitrogen 7 mg/dL (7-20) Creatinine 0.8 mg/dL (0.6-1.0) Estimated GFR (Cockcroft-Gault) 75.3 Glucose Level 98 mg/dL (70-99) Calcium Level 8.7 mg/dL (8.5-10.1) Vancomycin Level Trough 18.8 mcg/mL (10.0-20.0) Vancomycin Last Dose Date 12/14/20 Vancomycin Last Dose Time 1200 Laboratory Tests Test 12/14/20 19:42 Vancomycin Level Trough 18.8 mcg/mL (10.0-20.0) Vancomycin Last Dose Date 12/14/20 Vancomycin Last Dose Time 1200 Brief Hospital Course Ms. Jacobs is a 50 old female, admit and started on Vanco IV, right leg redness improved over days, OT lymph team worked with her and she needs outpatient f/u, garments and compression fittings were written for by me. DC on clinda, f/u with any provider, Discharge Information Condition at Discharge: Improved Follow Up: Weeks Disposition/Orders: D/C to Home Scheduled Clindamycin Hcl (Clindamycin Hcl) 300 Mg Capsule, 900 MG PO TID for skin infection for 7 Days, #63 Prescribed by: FIDEL THOMAS on 12/15/20 1226 Multivits-Min/Iron/FA/Lutein (Centrum Silver Women Tablet) 1 Each Tablet, 1 EACH PO DAILY for supp, (Reported) Entered as Reported by: VELASQUEZ POLLACK on 12/13/202237 Last Action: New Order on 12/13/202237 by VELASQUEZ POLLACK Mv,Ca,Min/Fa/Herbal Comp #223 (Estroven Mood & Memory Caplet) 400 Mcg Tablet, 400 MCG PO DAILY for supp, (Reported) Entered as Reported by: VELASQUEZ POLLACK on 12/13/202237 Last Action: New Order on 12/13/202237 by VELASQUEZ POLLACK Scheduled PRN Acetaminophen (Tylenol) 325 Mg Tablet, 2 TAB PO PRN DAILY PRN for PAIN, #30 (Reported) Entered as Reported by: VELASQUEZ POLLACK on 12/13/202237 Last Action: New Order on 12/13/202237 by VELASQUEZ POLLACK Patient Instructions Patient Instructions pt seen face to face discussed with her mom as well, Justicifation of Admission Dx: Justifications for Admission: Justification of Admission Dx: FIDEL Hill MD Dec 15, 2020 16:55
[2020-12-15] MEDS ORDERED: LACTOBACILLUS RHAMNOSUS GG 1 CAPSULE. PO SCH (21:00)
== END 2020-12-15 16:47 | disposition home or self-care (01) | DRG 872 ==
LOC: ER 15:26 → ED HOLD 17:26 → 6 SOUTH 21:17
PROVIDERS: ADMIT Internal Medicine; ATTEND Internal Medicine
DX: A41.9 Sepsis, unspecified organism (principal); Z68.44 Body mass index [BMI] 60.0-69.9, adult; L03.115 Cellulitis of right lower limb; D64.9 Anemia, unspecified; E66.01 Morbid (severe) obesity due to excess calories; I89.0 Lymphedema, not elsewhere classified; J45.909 Unspecified asthma, uncomplicated; R73.9 Hyperglycemia, unspecified; R03.0 Elevated blood-pressure reading, without diagnosis of hypertension; Z82.49 Family history of ischemic heart disease and other diseases of the circulatory system
CPT/HCPCS: 36415; 71045; 80048; 80053; 80202; 81001; 83036; 83605; 83880; 84443; 84484; 85025; 85651; 86140; 87040; 93005; 93971; 96365; 96366; 96375; J0696; J1650; J3010; J3370; J3490; J7030; J7040; 97535-GO; 99285-25; G0378